=== PATIENT | male | born 2000 | race African-American/Black ===

== ENCOUNTER 2019-06-08 11:32 | Emergency (ER) | payer OTHER ==
[2019-06-08 11:47] VITALS: TEMP 98.5; BMI 31.2
[2019-06-08] MEDS ORDERED: PANTOPRAZOLE SODIUM 40 MG in SODIUM CHLORIDE 100 ML IVPB ONE (13:36)
[2019-06-08] MEDS ORDERED: KETOROLAC TROMETHAMINE 30 MG/1 ML VIAL IVPUSH ONE (13:39)
[2019-06-08] MEDS ORDERED: PANTOPRAZOLE SODIUM 40 MG/100 ML BAG IVPB ONE (14:38)
[2019-06-08] MEDS ORDERED: KETOROLAC TROMETHAMINE 30 MG/1 ML VIAL ONE (14:38)
[2019-06-08 14:47] LABS: BASO % 0.3 % (0-2.0); EOS % 1.2 % (0-4.5); HEMATOCRIT 41.9 % (35.4-49); HEMOGLOBIN 13.7 GM/dL (11.7-16.9); LYMPH % 28.8 % (8-40); MCH 27.6 pg (25.7-33.7); MCHC 32.6 g/dl (32.0-35.9); MEAN CELL VOLUME 84.8 fl (80-96); MEAN PLT VOLUME 9.9 fl (7.5-11.1); MONO % 7.2 % (3.8-10.2); NEUT % 62.5 % (42.8-82.8); PLATELET COUNT 241 K/MM3 (134-434); RBC 4.94 M/mm3 (4.00-5.60); RDW 16.4 % (11.9-15.9); WHITE BLOOD COUNT 9.9 K/mm3 (4.0-10.0)
[2019-06-08 15:10] LABS: ALBUMIN 3.9 g/dl (3.4-5.0); BILIRUBIN,TOTAL 0.5 mg/dL (0.2-1); CALCIUM 9.6 mg/dL (8.5-10.1); CREATININE 0.9 mg/dL (0.55-1.3); POTASSIUM 4.4 mmol/L (3.5-5.1); TOT PROT 7.8 g/dl (6.4-8.2)
--- NOTE | 2019-06-08 15:41 | PDOC ---
History of Present Illness - General Chief Complaint: Pain Stated Complaint: ABD PAIN Time Seen by Provider: 06/08/19 13:30 History Source: Patient Exam Limitations: No Limitations - History of Present Illness Travel History: No Initial Comments: 06/08/19 15:08 18 yr old male presents to ED with complaints of intermittent periumbilical cramping for the past 2 weeks worsened at night. Patient denies change in bowel pattern, change in urine pattern, abdominal distention, change in gas pattern, or history of GI disorders. Timing/Duration: reports: changing over time Quality: reports: mild, cramping Abdominal Pain Onset Location: reports: periumbilical Pain Radiation: reports: no radiation Activities at Onset: reports: none Aggravating Factors: improves with: None Alleviating Factors: improves with: None Past History - Travel Traveled outside of the country in the last 30 days: No Close contact w/someone who was outside of country & ill: No - Past Medical History Allergies/Adverse Reactions: Allergies Allergy/AdvReac Type Severity Reaction Status Date / Time clonidine Allergy Verified 06/08/19 11:48 codeine Allergy Verified 06/08/19 11:47 hydrocodone Allergy Verified 06/08/19 11:48 Home Medications: Ambulatory Orders Unobtainable 06/08/19 COPD: No Diabetes: Yes Psychiatric Problems: Yes (anxiety, bipolar, depression) - Suicide/Smoking/Psychosocial Hx Smoking History: Never smoked Information on smoking cessation initiated: No Hx Alcohol Use: No Drug/Substance Use Hx: No Patient Lives Alone: No Lives with/in: home [place] Review of Systems - Review of Systems Able to Perform ROS?: No Is the patient limited Korean proficient: No Constitutional: No: Symptoms Reported HEENTM: No: Symptoms Reported Respiratory: No: Symptoms reported Cardiac (ROS): No: Symptoms Reported ABD/GI: Yes: Abdominal cramping. No: Blood Streaked Bowels, Constipated, Diarrhea, Nausea, Poor Fluid Intake, Vomiting : No: Symptoms Reported Musculoskeletal: No: Symptoms Reported Integumentary: No: Symptoms Reported Neurological: No: Symptoms reported Endocrine: No: Symptoms Reported *Physical Exam - Vital Signs Last Vital Signs Temp Pulse Resp BP Pulse Ox 98.5 F 81 19 114/54 L 100 06/08/19 11:43 06/08/19 11:43 06/08/19 11:43 06/08/19 11:43 06/08/19 11:43 - Physical Exam General Appearance: Yes: Nourished, Appropriately Dressed. No: Apparent Distress HEENT: negative: Pale Conjunctivae Respiratory/Chest: positive: Lungs Clear, Normal Breath Sounds. negative: Respiratory Distress, Accessory Muscle Use Cardiovascular: positive: Regular Rhythm, Regular Rate. negative: Murmur Gastrointestinal/Abdominal: positive: Soft, Tenderness (upper periumbilical right periumbilical) Extremity: positive: Normal Capillary Refill Integumentary: positive: Normal Color, Warm, Moist Neurologic: positive: Motor Strength 5/5 (ambulatory) ED Treatment Course - LABORATORY CBC & Chemistry Diagram: 06/08/19 14:24 06/08/19 14:24 - ADDITIONAL ORDERS Additional order review: Laboratory Results 06/08/19 06/08/19 14:24 14:24 Sodium 143 Potassium 4.4 Chloride 110 H Carbon Dioxide 29 Anion Gap 4 L BUN 7.0 Creatinine 0.9 Est GFR (CKD-EPI)AfAm 143.00 Est GFR (CKD-EPI)NonAf 123.38 Random Glucose 75 Calcium 9.6 Total Bilirubin 0.5 AST 16 ALT 19 Alkaline Phosphatase 98 Total Protein 7.8 Albumin 3.9 Lipase 125 06/08/19 14:24 RBC 4.94 MCV 84.8 MCHC 32.6 RDW 16.4 H MPV 9.9 Neutrophils % 62.5 Lymphocytes % 28.8 Monocytes % 7.2 Eosinophils % 1.2 Basophils % 0.3 - RADIOLOGY Radiology Studies Ordered: Category Date Time Status ABDOMEN US -LIMITED [US] Stat Ultrasound 06/08/19 13:39 Ordered - Medications Given in the ED: ED Medications Discontinued Medications Generic Name Dose Route Start Last Admin Trade Name Freq PRN Reason Stop Dose Admin Pantoprazole Sodium 40 mg/ 100 mls @ 200 mls/hr 06/08/19 13:36 06/08/19 14:45 Sodium Chloride IVPB 06/08/19 14:05 200 mls/hr ONCE ONE Administration Ketorolac Tromethamine 30 mg 06/08/19 13:39 06/08/19 14:45 Toradol Injection - IVPUSH 06/08/19 13:40 30 mg ONCE ONE Administration Medical Decision Making - Medical Decision Making 06/08/19 15:02 Chief complaint: Periumbilical cramping for the past 2 weeks worsened at night and after meals patient has no other complaints Exam mild right and upper periumbilical tenderness bowel sounds present 4 no distention Plan labs Toradol and abdominal ultrasound ordered 06/08/19 16:03 Laboratory Tests 06/08/19 06/08/19 06/08/19 14:24 14:24 14:24 WBC 9.9 Hgb 13.7 Hct 41.9 RDW 16.4 H Absolute Neuts (auto) 6.2 Sodium 143 Potassium 4.4 Chloride 110 H Carbon Dioxide 29 Anion Gap 4 L BUN 7.0 Creatinine 0.9 Random Glucose 75 Magnesium AST 16 ALT 19 Lipase 125 06/08/19 14:24 WBC Hgb Hct RDW Absolute Neuts (auto) Sodium Potassium Chloride Carbon Dioxide Anion Gap BUN Creatinine Random Glucose Magnesium 2.2 AST ALT Lipase 06/08/19 16:30 Gallbladder appears contracted without evidence of cholelithiasis. Otherwise normal abdominal sonogram noted. Patient recommended to eat small frequent meals. I recommend also taking Prevacid 20 mg daily as prescribed yesterday by [place] [facility] *DC/Admit/Observation/Transfer Diagnosis at time of Disposition: Abdominal pain - Discharge Dispostion Disposition: HOME Condition at time of disposition: Improved - Referrals - Patient Instructions Printed Discharge Instructions: DI for Abdominal Pain-Adult Additional Instructions: Please follow-up bland food diet . I also recommend taking Prevacid daily. If symptoms continue despite above recommendations, I do recommend following up with GI to receive an endoscopy - Post Discharge Activity
[2019-06-08 16:52] VITALS: BP 145/78; PULSE 88
== END 2019-06-08 16:52 | disposition home or self-care (01) ==
LOC: JER 11:32
PROC: 3E033GC Introduction of Other Therapeutic Substance into Peripheral Vein, Percutaneous Approach (ICD-10-PCS; principal; 2019-06-08)
PROC: 3E0333Z Introduction of Anti-inflammatory into Peripheral Vein, Percutaneous Approach (ICD-10-PCS; 2019-06-08)
DX: R10.33 Periumbilical pain (principal); Z86.59 Personal history of other mental and behavioral disorders
CPT/HCPCS: 36415; 76705-TC; 80053; 83690; 83735; 85025; 96365; 96375; 99283-25